=== PATIENT | male | born 1980 | race Caucasian/White ===

== ENCOUNTER 2019-09-09 15:30 | Outpatient (CLI) | payer MEDICARE, MEDICAID, SELFPAY ==
--- NOTE | 2019-09-09 | XR_ITS ---
WS: [id number] Chest 2 views, 09/09/2019 Clinical Data: SCREEN FOR TB Comparison: None. Findings: No nodules, masses or effusions are seen. The heart is normal. The pulmonary vascularity is not increased. No pneumonia or pneumothorax is seen. XR/XR chest 2V* [id number] Impression: Negative chest.
== END 2019-09-09 15:31 | disposition home or self-care (01) ==
PROVIDERS: Visit Provider Nurse Practitioner Family
DX: Z01.89 Encounter for other specified special examinations (principal)

== ENCOUNTER 2022-10-12 17:08 | Emergency (ER) | payer MEDICARE, MEDICAID, SELFPAY ==
[2022-10-12 17:09] VITALS: BP 132/92; PULSE 113; RESP 16; TEMP 36.5; O2SAT 98
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
[2022-10-12] MEDS: tetanus-dipt-pertussis 0.5 mL SDV IM (18:26)
--- NOTE | 2022-10-12 19:09 | PC.NURSE ---
report given to YESY Ruelas to assume care
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
[2022-10-12 19:46] VITALS: BP 149/91; PULSE 99; RESP 16; O2SAT 98
== END 2022-10-12 20:19 ==
PROVIDERS: Emergency Provider Emergency Medicine; PCP Nurse Practitioner Family
DX: S02.92XA Unspecified fracture of facial bones, initial encounter for closed fracture (principal); S01.412A Laceration without foreign body of left cheek and temporomandibular area, initial encounter; I10 Essential (primary) hypertension; Y04.2XXA Assault by strike against or bumped into by another person, initial encounter; Y92.149 Unspecified place in prison as the place of occurrence of the external cause; Z23 Encounter for immunization
CPT/HCPCS: 12013; 70450; 70486; 90471; 90715; 99284

== ENCOUNTER → 2022-10-23 08:52 | Outpatient (BNVA) | payer MEDICARE, MEDICAID, SELFPAY | PROVIDERS: PCP Nurse Practitioner Family; Visit Provider Otolaryngology | DX: S02.2XXA Fracture of nasal bones, initial encounter for closed fracture (principal); J34.2 Deviated nasal septum; J32.0 Chronic maxillary sinusitis; Y04.2XXA Assault by strike against or bumped into by another person, initial encounter | CPT/HCPCS: 99203 ==

== ENCOUNTER → 2024-04-23 13:44 | Outpatient (BNVA) | payer MEDICARE, SELFPAY | PROVIDERS: PCP Nurse Practitioner Family | DX: E78.5 Hyperlipidemia, unspecified (principal) | CPT/HCPCS: 80053; 80061; 85025 ==